=== PATIENT | male | born 2000 | race Two or more races ===

== ENCOUNTER 2019-10-02 00:17 | Emergency (ER) | payer SELFPAY ==
[~2019-10-02] VITALS: Ht 170.2 cm; Wt 59.0 kg
[2019-10-02 00:46] VITALS: BP 130/80
--- NOTE | 2019-10-02 00:54 | Emergency Room Report ---
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 Patient presents to the ER complaining of generalized weakness, headache and throat discomfort for 1 day. He denies any fever or chills. He denies any chest pain or shortness of breath. He complains of mild generalized body aches. He denies any recent travel or sick contacts. He states that his headache resolved with Tylenol. He denies any neck stiffness or rash. He states that he does smoke cigarettes. Patient is concerned with the Covid-19 pandemic and is requesting testing. Allergies: Coded Allergies: No Known Allergies (Unverified , 10/02/19) COVID-19 Screening Contact w/high risk pt: No Recent Travel to affected area: No Experienced COVID-19 symptoms?: No Patient History Past Medical History: none Past Surgical History: other - "ventricular repair" Social History: Reports: smoking Review of Systems All Other Systems: negative except mentioned in HPI Physical Exam Vital Signs Date Time Temp Pulse Resp B/P (MAP) Pulse Ox O2 Delivery O2 Flow Rate FiO2 10/02/19 00:23 98.2 78 18 130/80 (97) 100 Room Air Sp02 EP Interpretation: reviewed, normal General Appearance: no apparent distress, alert, GCS 15, non-toxic Head: normocephalic, atraumatic Eyes: bilateral eye normal inspection, bilateral eye PERRL ENT: hearing grossly normal, no angioedema, normal voice, other - dry oral mucosa, no tonsillar swelling, pharyngeal erythema, or tonsillar exudate Neck: full range of motion, supple/symm/no masses Respiratory: chest non-tender, lungs clear, normal breath sounds, speaking full sentences Cardiovascular #1: regular rate, rhythm, no edema Cardiovascular #2: 2+ carotid (R), 2+ carotid (L), 2+ radial (R), 2+ radial (L) , 2+ dorsalis pedis (R), 2+ dorsalis pedis (L) Gastrointestinal: normal bowel sounds, non tender, soft, non-distended, no guarding, no rebound Rectal: deferred Genitourinary: normal inspection, no CVA tenderness Musculoskeletal: back normal, normal range of motion, gait/station normal, non- tender Neurologic: alert, motor strength/tone normal, oriented x3, sensory intact, responsive, speech normal Psychiatric: judgement/insight normal, memory normal, mood/affect normal, no suicidal/homicidal ideation Skin: no rash Lymphatic: no adenopathy Medical Decision Making Diagnostic Impression: Primary Impression: Viral syndrome ER Course Patient presents with concern for Covid-19. He has no chest pain, shortness of breath or fever. Patient's symptoms improved with Tylenol. He is nontoxic. Due to patient's history of ventricular repair will test. Patient advised to self quarantine until his test results become available. Patient also advised to monitor the progression of his symptoms. Patient is currently comfortable appearing, oxygen saturation on room air is greater than 95%, respiratory rate is within normal limits, and lungs are clear to auscultation bilaterally without distress and patient is tolerating p.o. Patient was evaluated is considered a possible coronavirus case, and will therefore be given self quarantine instructions at the time of this evaluation patient does not appear to clinically require admission or further treatment in the emergency room. Patient presents to the emergency room with mild respiratory infection. I explained that this could be due to respiratory infection such as the cold, the flu or Coronavirus Disease. Most people with such infections can get better with appropriate home care and without the need to see a provider. People who are elderly, or have a weak immune system or other medical problems are at a higher risk of more serious illness or complications. I recommend that they carefully monitor their symptoms closely and seek medical care early if their symptoms get worse. I recommend rest, drinking plenty of fluids, taking [id number] cold and flu medications to reduce fever and pain. I noted that these medicines do not cure the illness and therefore do not stop them from spreading the germs. I recommend self quarantine for 14 days. Explained to the patient that we do not do routine Covid-19 testing for mild respiratory infections at [facility] in the Emergency Department. They may obtain it on an outpatient basis. I asked them to call their doctor before going to their office so they can prepare for their visit and note that the patient may have Covid-19. I recommend isolation until tests show that the patient does not have Covid-19 or they are told by the [facility] department or their primary care physician that they are no longer infectious. Last Vital Signs Date Time Temp Pulse Resp B/P (MAP) Pulse Ox O2 Delivery O2 Flow Rate FiO2 10/02/19 00:23 98.2 78 18 130/80 (97) 100 Room Air Disposition: HOME, SELF-CARE Condition: Stable Patient Instructions: Viral Respiratory Infection, [id number] Additional Instructions: The patient was provided with discharge instructions, notified to follow-up with a primary care doctor and or specialist in the next 24-48 hours, and to return to the ED if they have worsening of their symptoms. Please note that this report is being documented using [employer] technology. This can lead to erroneous entry secondary to incorrect interpretation by the dictating instrument. Rika Sanders M.D. Oct 02, 2019 00:54
[2019-10-02 01:00] VITALS: BP 130/80
== END 2019-10-02 01:00 | disposition home or self-care (01) ==
LOC: EMR 00:48
DX: B34.9 Viral infection, unspecified (principal); F17.210 Nicotine dependence, cigarettes, uncomplicated
CPT/HCPCS: 99282; U0002; 87635